=== PATIENT | male | born 1955 | race Caucasian/White ===

== ENCOUNTER 2021-06-30 13:56 | Outpatient (CLI) | payer MEDICARE ==
[2021-06-30 17:57] LABS: BASOPHILS % (AUTO) 0.6 %; EOSINOPHILS # (AUTO) 0.3 10^3/uL (0.0-0.7); EOSINOPHILS % (AUTO) 3.7 %; HGB - HEMOGLOBIN 13.6 g/dL (14.0-18.0); LYMPHOCYTES # (AUTO) 1.6 10^3/uL (1.5-3.5); LYMPHOCYTES % (AUTO) 24.3 %; MEAN CORPUSCULAR HEMOGLOBIN 35.8 pg (27.0-31.0); MEAN CORPUSCULAR HGB CONC 33.2 g/dL (32.0-36.0); MEAN CORPUSCULAR VOLUME 107.9 fL (80.0-94.0); MEAN PLATELET VOLUME 10.6 fL (7.4-11.4); MONOCYTES # (AUTO) 0.8 10^3/uL (0.0-1.0); MONOCYTES % (AUTO) 11.2 %; NEUTROPHILS % (AUTO) 60.1 %; PLT - PLATELET COUNT 280 10^3/uL (130-450); RED CELL DISTRIBUTION WIDTH 15.5 % (12.0-15.0); WHITE BLOOD COUNT 6.7 x10^3/uL (4.8-10.8)
[2021-06-30 18:10] LABS: ALBUMIN/GLOBULIN RATIO 1.1 (1.0-2.2); ALKALINE PHOSPHATASE 68 IU/L (42-121); ALT ALANINE AMINOTRANSFERASE 27 IU/L (10-60); AST ASPARTATE AMINOTRANSFERASE 30 IU/L (10-42); BILIRUBIN,TOTAL 0.6 mg/dL (0.2-1.0); BUN - BLOOD UREA NITROGEN 14 mg/dL (6-20); CALCIUM 9.8 mg/dL (8.5-10.3); CARBON DIOXIDE - CO2 23 mmol/L (21-32); CHLORIDE 108 mmol/L (101-111); CHOL/HDL RATIO 2.4 (<5.0); CHOLESTEROL 133 mg/dL; CREATININE 1.1 mg/dL (0.6-1.2); GFR - MDRD 67 (>89); GLUCOSE 90 mg/dL (70-100); HDL CHOLESTEROL 56 mg/dL; LDL CHOLESTEROL,CALCULATED 52 mg/dL; LDL/HDL RATIO 0.9 (<3.6); POTASSIUM 4.9 mmol/L (3.5-5.0); SODIUM 141 mmol/L (135-145); TOTAL PROTEIN 7.7 g/dL (6.7-8.2); TRIGLYCERIDES 124 mg/dL; VLDL CHOLESTEROL 25 mg/dL
[2021-06-30 18:20] LABS: THYROID STIMULATING HORMONE 5.02 uIU/mL (0.34-5.60)
== END 2021-06-30 23:59 | disposition home or self-care (01) ==
LOC: LAB.WCP 13:56
PROVIDERS: ATTEND Nurse Practitioner
DX: I10 Essential (primary) hypertension (principal); Z13.220 Encounter for screening for lipoid disorders; R53.83 Other fatigue; Z12.5 Encounter for screening for malignant neoplasm of prostate; R68.89 Other general symptoms and signs; G62.9 Polyneuropathy, unspecified
CPT/HCPCS: 36415; 80053; 80061; 82607; 84443; 85025; G0103; 81001; 83721; 84153; 87086

== ENCOUNTER 2021-07-01 12:05 | Outpatient (CLI) | payer MEDICARE ==
[2021-07-01 18:48] LABS: BILIRUBIN,URINE NEGATIVE (NEGATIVE); GLUCOSE, URINE (UA) NEGATIVE (NEGATIVE); KETONES,URINE (UA) NEGATIVE (NEGATIVE); LEUKOCYTE ESTERASE, URINE NEGATIVE (NEGATIVE); NITRITE,URINE NEGATIVE (NEGATIVE); OCCULT BLOOD,URINE NEGATIVE (NEGATIVE); PH,URINE 5.5 PH (5.0-7.5); PROTEIN,URINE NEGATIVE (NEGATIVE); UROBILINOGEN,URINE 0.2 (NORMAL) E.U./dL (NORMAL)
[2021-07-01 18:50] LABS: CLARITY,URINE CLEAR (CLEAR)
[2021-07-01 19:06] LABS: BACTERIA,URINE Rare /HPF (None Seen); RBC,URINE None Seen /HPF (0-5); SQUAMOUS EPITHELIAL CELL,UR RARE Squamous (<= Few); WBC,URINE 0-3 /HPF (0-3)
== END 2021-07-01 23:59 | disposition home or self-care (01) ==
LOC: LAB.WCP 12:05
PROVIDERS: ATTEND Nurse Practitioner
DX: R53.83 Other fatigue (principal)
CPT/HCPCS: 81001; 87086

== ENCOUNTER 2021-07-15 13:51 | Outpatient (CLI) | payer MEDICARE ==
--- NOTE | 2021-07-15 16:00 | Ultrasound Report ---
PROCEDURE: Duplex Ext Veins Bilateral INDICATIONS: Bilateral claudication. Bilateral leg pain. TECHNIQUE: Real-time imaging, as well as color and pulse Doppler interrogation, were performed of the deep veins of both legs from the inguinal ligament to the popliteal fossa. COMPARISON: None. FINDINGS: VASCULATURE: Normal spontaneous flow and phasicity, augmentation and waveforms, and compressibility o f the vessels from the common femoral veins through the calf veins. SOFT TISSUES: No acute abnormality. IMPRESSION: 1.No sonographic evidence of deep venous thrombus. Reviewed by: Torrey Valenzuela MD on 07/15/2021 3:58 PM [facility] Approved by: Torrey Valenzuela MD on 07/15/2021 3:58 PM [facility] Station ID: [id number]
--- NOTE | 2021-07-15 16:19 | Ultrasound Report ---
PROCEDURE: Duplex Lwr Ext Arterial Bilat INDICATIONS: BILATERAL CLAUDICATION TECHNIQUE: Color and pulse Doppler interrogation was performed of both lower extremity arterial systems, with im age documentation. COMPARISON: None. FINDINGS: Right lower extremity: Common femoral artery: 71 cm/sec, with monophasic flow. Deep femoral artery: 134 cm/sec, with monophasic flow. Proximal superficial femoral artery: 62 cm/sec, with monophasic flow. Mid superficial femoral artery: 46 cm/sec, with monophasic flow. Distal superficial femoral artery: 20 cm/sec, with monophasic flow. Popliteal artery: 38 cm/sec, with monophasic flow. Posterior tibial artery: 18 cm/sec, with monophasic flow. Anterior tibial artery/dorsalis pedis: 35/6 cm/sec, with monophasic flow. Rivera-scale imaging description: Calcified atheromatous change. Left lower extremity: Common femoral artery: 65 cm/sec, with monophasic flow. Deep femoral artery: 73 cm/sec, with monophasic flow. Proximal superficial femoral artery: 96 cm/sec, with monophasic flow. Mid superficial femoral artery: 27 cm/sec, with monophasic flow. Distal superficial femoral artery: 8 cm/sec, with monophasic flow. Popliteal artery: 13 cm/sec, with monophasic flow. Posterior tibial artery: 22 cm/sec, with monophasic flow. Anterior tibial artery: 10 cm/sec, with monophasic flow. Rivera-scale imaging description: 4 cm occluded segment with multiple collaterals in the left distal C FA. The left DPA is not visualized. Stenosis of the left BELT PICKER by approximately 50%. IMPRESSION: 1.Peripheral vascular disease as detailed above. Reviewed by: Torrey Valenzuela MD on 07/15/2021 4:18 PM PST Approved by: Torrey Valenzuela MD on 07/15/2021 4:18 PM PST Station ID: [id number]
== END 2021-07-15 13:52 | disposition home or self-care (01) ==
LOC: DI 13:51
PROVIDERS: ATTEND Nurse Practitioner
DX: I73.9 Peripheral vascular disease, unspecified (principal)
CPT/HCPCS: 93925; 93970